=== PATIENT | male | born 1995 | race Two or more races ===

== ENCOUNTER 2017-12-14 13:49 | Emergency (ER) | payer BC ==
[2017-12-14 14:13] VITALS: BP 152/91; PULSE 74; RESP 16; TEMP 98.2; O2SAT 93
--- NOTE | 2017-12-14 15:10 | EDPHY ---
H & P Time Seen by Provider: 12/14/17 14:55 HPI/ROS: CHIEF COMPLAINT: Back pain HISTORY OF PRESENT ILLNESS: Patient is a 22-year-old male who presents to the emergency department right lower back pain. It is point tender. It is worse with movement. He does not recall sustaining injury. He has had a similar pain there in the past which resolved on its own. He denies any recent trauma or fall. No weakness or numbness. No incontinence of urine or stool. No fevers or chills. No dysuria or frequency. No hematuria. REVIEW OF SYSTEMS: My complete review of systems is negative except as mentioned in the HPI. Past Medical/Surgical History: Previous back pain Past surgical history: Negative Social history: The patient does not smoke Smoking Status: Never smoked Physical Exam: Vitals noted GENERAL: Well-appearing, in no acute distress, alert. HEENT: Eyes normal to inspection, normal pharynx, no signs of dehydration. NECK: [No thyromegaly, no lymphadenopathy, supple. RESPIRATORY: Clear to auscultation bilaterally, no rales, rhonchi or wheezing. CVS: Regular rate and rhythm, no rubs, murmurs, or gallops. ABDOMEN: Soft, nontender, nondistended, no organomegaly. BACK: Normal to inspection, no CVA tenderness. Patient has right low tenderness to palpation. This is point tender. There is no palpable mass. It is just lateral to the vertebral column. No spinal tenderness to palpation. No step-off. Negative leg raise. SKIN: Normal color, no rash, warm, dry. No pallor. EXTREMITIES: No pedal edema, no calf tenderness, no Homans sign or cords, no joint swelling. NEURO/PSYCH: Alert and oriented x3, normal mood and affect, normal motor sensory exam. No obvious cranial nerve deficit. Constitutional: Initial Vital Signs Temperature (C) 36.8 C 12/14/17 14:10 Heart Rate 74 12/14/17 14:10 Respiratory Rate 16 12/14/17 14:10 Blood Pressure 152/91 H 12/14/17 14:10 O2 Sat (%) 93 12/14/17 14:10 O2 Delivery Mode Room Air Allergies/Adverse Reactions: No Known Allergies Allergy (Verified 12/14/17 14:09) Home Medications: Medication Instructions Recorded NK [No Known Home Meds] 12/14/17 Medical Decision Making ED Course/Re-evaluation: In the emergency department I discussed possible etiologies with the patient. I answered all his questions. Patient will be given a prescription of ibuprofen and Flexeril. I gave him warnings prior to leaving. He will return with worsening symptoms. Differential Diagnosis: My differential includes but is not limited to musculoskeletal strain, disc herniation, hematoma, pyelonephritis, kidney stones Departure - Departure Disposition: Home, Routine, Self-Care Clinical Impression: Low back pain Qualifiers: Chronicity: acute Back pain laterality: right Sciatica presence: without sciatica Qualified Code(s): M54.5 - Low back pain Condition: Good Instructions: Acute Low Back Pain (ED), Lower Back Exercises (ED) Additional Instructions: Return with increasing pain, weakness, numbness incontinence or urine or stool, or any other concerns. Referrals: Errol Gunter MD [Medical Doctor] - 5-7 days, call for appt.
== END 2017-12-14 15:23 | disposition home or self-care (01) ==
DX: M54.5 Low back pain (principal)

== ENCOUNTER 2018-01-03 16:20 | Emergency (ER) | payer BC ==
--- NOTE | 2018-01-03 16:22 | EDPHY ---
HPI/HX/ROS/PE/MDM Narrative: CHIEF COMPLAINT: Snowboard accident. HPI: This 22 year old male arriving via EMS presents for evaluation after a snowboard accident this afternoon. Per EMS report, the patient was helmeted and fell, losing consciousness. He was able to get up following this but fell and lost consciousness again. [place], who reported he was initially combative on scene. These symptoms resolved while he waited at the first aid station. When EMS arrived, he was momentarily combative again, but became calm during transport. Vitals were stable in transport. Patient denies other trauma. No fever, vomiting, vision changes, or other associated symptoms. REVIEW OF SYSTEMS: Aside from elements discussed in the HPI, a comprehensive 10-point review of systems was reviewed and is negative. PMH: Denies. SOCIAL HISTORY: Friend at bedside. Speaks Nepali and Farsi. Student at [employer]. PHYSICAL EXAM: General:Patient is alert, in no acute distress. ENT:Eyes are normal to inspection. ENT inspection normal. Neck: Normal inspection. Full range of motion. Respiratory:No respiratory distress. Breath sounds normal bilaterally. Cardiovascular: Regular rate and rhythm. Strong peripheral pulses. Normal cap refill. Abdomen:The abdomen is nontender to palpation. There are no peritoneal signs. There are normal bowel sounds. Back: Normal to inspection. No tenderness to palpation. Skin: Normal color. No rash. Warm and dry. Extremities: Normal appearance. Full range of motion. Neuro: Oriented x3. Normal motor function. Normal sensory function. ED Course: 16:22 Met EMS at bedside. 16:32 Alerted by nurse that the patient has decided to leave before the visit was complete. When I met EMS at bedside, the patient was in no acute distress and I did not observe any obvious trauma. 16:40 The patient has changed his mind and wishes to remain for further evaluation. Plan for CT head and cervical spine. 16:51 Patient again wishes to leave. I spoke with him and he agrees to CT head. Exam unremarkable. Patient continues to be well-appearing. 17:[address] Gallegos, radiologist. CT shows evidence of small left frontal cortical contusion. C-spine unremarkable. 17:[address] Zhang, neurosurgeon. He is comfortable with outpatient followup for this patient given diagnosis of left fontal cortical contusion given the patient's exam findings, scan, and mechanism of injury. Plan to d/c home in good condition. Follow up and strict return precautions discussed. He is comfortable with this plan. - Data Points Imaging Results: Imaging Impressions Cervical Spine CT 01/03/18 16:26 Impression: Possible small left frontal cortical contusion without mass effect.. 2. CT Cervical Spine Without Contrast, 16:57PM History: Trauma. Snowboarding injury. Technique: Multislice helical CT through the cervical spine without contrast from the skull base to T1. Soft tissue and bone evaluation is performed. Sagittal and coronal reconstructions are obtained and reviewed. Dose reduction techniques were utilized. Findings: Cervical alignment is anatomic, but straight. No fracture or dislocation is identified. The relationship between skull base and C1 is normal. The C1-C2 articulation is normally aligned. The odontoid process is intact. Disk spaces maintain their normal height . Facet joints are normally aligned. The cervical thoracic junction is normally aligned. Soft tissue window evaluation does not show evidence of epidural or prevertebral hematoma. Impression: No posttraumatic abnormality identified. Results called and discussed with Cruz Mayer MD, at 01/03/2018 17:24 Final results are concordant with the initial interpretation. General information for patients regarding this examination can be found at [email or web address]. If you have questions or comments about this report, please contact me at [phone](hospital) or [phone] (cell). Head CT 01/03/18 16:26 Impression: Possible small left frontal cortical contusion without mass effect.. 2. CT Cervical Spine Without Contrast, 16:57PM History: Trauma. Snowboarding injury. Technique: Multislice helical CT through the cervical spine without contrast from the skull base to T1. Soft tissue and bone evaluation is performed. Sagittal and coronal reconstructions are obtained and reviewed. Dose reduction techniques were utilized. Findings: Cervical alignment is anatomic, but straight. No fracture or dislocation is identified. The relationship between skull base and C1 is normal. The C1-C2 articulation is normally aligned. The odontoid process is intact. Disk spaces maintain their normal height . Facet joints are normally aligned. The cervical thoracic junction is normally aligned. Soft tissue window evaluation does not show evidence of epidural or prevertebral hematoma. Impression: No posttraumatic abnormality identified. Results called and discussed with Cruz Mayer MD, at 01/03/2018 17:24 Final results are concordant with the initial interpretation. General information for patients regarding this examination can be found at [email or web address]. If you have questions or comments about this report, please contact me at (hospital) or [phone] (cell). Imaging: Discussed imaging studies w/ director call Radiologist General Time Seen by Provider: 01/03/18 16:20 Initial Vital Signs: Initial Vital Signs Temperature (C) 36.7 C 01/03/18 16:25 Heart Rate 65 01/03/18 16:25 Respiratory Rate 16 01/03/18 16:25 Blood Pressure 132/97 H 01/03/18 16:25 O2 Sat (%) 100 01/03/18 16:25 O2 Delivery Mode Room Air Allergies/Adverse Reactions: No Known Allergies Allergy (Verified 12/14/17 14:09) Home Medications: Medication Instructions Recorded Cyclobenzaprine [Flexeril] 10 mg PO TID #15 tab 12/14/17 Ibuprofen 600 mg PO Q6 #15 tablet 12/14/17 Departure - Departure Disposition: Home, Routine, Self-Care Clinical Impression: Cortical contusion Qualifiers: Encounter type: initial encounter Loss of consciousness presence/duration: with LOC of 30 min or less Qualified Code(s): S06.2X1A - Diffuse traumatic brain injury with loss of consciousness of 30 minutes or less, initial encounter Condition: Good Instructions: Head Injury (ED) Additional Instructions: 1. You do have a small left frontal cortical contusion found on CT. 2. Follow up with Dr. Zhang, neurosurgeon, this week. 3. Return to the Emergency Department for severe headache, vomiting, vision changes, confusion, fever or other concerns. Referrals: Thanh Zhang MD [Medical Doctor] - As per Instructions Report Scribed for: Cruz Mayer Report Scribed by: Ruth Jackson Date of Report: 01/03/18 Time of Report: 16:37 Physician Review and Approval Statement: Portions of this note were transcribed by an ED scribe. I personally performed the history, physical exam, and medical decision making; and confirm the accuracy of the information in the transcribed note.
[2018-01-03 16:28] VITALS: RESP 16
[2018-01-03 18:09] VITALS: BP 143/91; PULSE 67; TEMP 97.5; O2SAT 98
== END 2018-01-03 18:07 | disposition home or self-care (01) ==
LOC: EDUNIT#
DX: S06.2X1A Diffuse traumatic brain injury with loss of consciousness of 30 minutes or less, initial encounter (principal); V00.311A Fall from snowboard, initial encounter; Y99.8 Other external cause status; Y93.23 Activity, snow (alpine) (downhill) skiing, snowboarding, sledding, tobogganing and snow tubing

== ENCOUNTER 2018-01-11 16:00 | Emergency (ER) | payer BC ==
[2018-01-11 16:19] VITALS: BP 111/71; PULSE 96; RESP 18; O2SAT 96
--- NOTE | 2018-01-11 16:21 | EDPHY ---
H & P Stated Complaint: Flu sxs x 4 days Time Seen by Provider: 01/11/18 16:19 HPI/ROS: CHIEF COMPLAINT: [ ] HISTORY OF PRESENT ILLNESS: [Need 4: Location, Duration, Severity, Quality, Context, Timing Modifying Factors, Associated S&S] REVIEW OF SYSTEMS: A comprehensive 10 point review of systems is otherwise negative aside from elements mentioned in the history of present illness. - Personal History Current Tetanus Diphtheria and Acellular Pertussis (TDAP): Yes Tetanus Vaccine Date: 2015 - Medical/Surgical History Hx Asthma: No Hx Chronic Respiratory Disease: No Hx Diabetes: No Hx Cardiac Disease: No Hx Renal Disease: No Hx Cirrhosis: No Hx Alcoholism: No Hx HIV/AIDS: No Hx Splenectomy or Spleen Trauma: No Other PMH: none - Social History Smoking Status: Never smoked - Physical Exam Exam: General Appearance: [Alert, no distress] Eyes: [Pupils equal and round no pallor or injection] ENT, Mouth: [Mucous membranes moist] Respiratory: [There are no retractions, lungs are clear to auscultation] Cardiovascular: [Regular rate and rhythm] Gastrointestinal: [Abdomen is soft and nontender, no masses, bowel sounds normal] Neurological: [A&O, normal motor function, normal sensory exam, normal cranial nerves] Skin: [Warm and dry, no rashes] Musculoskeletal: [Neck is supple nontender] Extremities: [symmetrical, full range of motion] Psychiatric: [Patient is oriented X 3, there is no agitation] Constitutional: Initial Vital Signs Temperature (C) 37.4 C 01/11/18 16:15 Heart Rate 96 01/11/18 16:15 Respiratory Rate 18 01/11/18 16:15 Blood Pressure 111/71 01/11/18 16:15 O2 Sat (%) 96 01/11/18 16:15 O2 Delivery Mode Room Air Allergies/Adverse Reactions: No Known Allergies Allergy (Verified 01/11/18 16:17) Home Medications: Medication Instructions Recorded NK [No Known Home Meds] 01/11/18 Departure - Departure Referrals: NONE *PRIMARY CARE P,. [Primary Care Provider] - As per Instructions
[2018-01-11] MEDS ORDERED: IBUPROFEN 600 MG TAB PO ONE (16:26)
[2018-01-11] MEDS ORDERED: ACETAMINOPHEN 325 MG TAB PO ONE (16:26)
--- NOTE | 2018-01-11 16:27 | EDPHY ---
H & P Stated Complaint: Flu sxs x 4 days Time Seen by Provider: 01/11/18 16:19 HPI/ROS: CHIEF COMPLAINT: Myalgias, low-grade fever, sore throat, cough HISTORY OF PRESENT ILLNESS: The patient presents to the ED with a 4 day history of myalgias, low-grade fever, sore throat and cough. The patient denies history of lung disease. The patient did not get a flu shot this year. The patient denies any abdominal pain, vomiting or diarrhea. The patient denies any neck stiffness, severe headache or focal neurologic symptoms. The patient denies significant past medical history. REVIEW OF SYSTEMS: A comprehensive 10 point review of systems is otherwise negative aside from elements mentioned in the history of present illness. Source: Patient Exam Limitations: No limitations - Personal History Current Tetanus Diphtheria and Acellular Pertussis (TDAP): Yes Tetanus Vaccine Date: 2015 - Medical/Surgical History Hx Asthma: No Hx Chronic Respiratory Disease: No Hx Diabetes: No Hx Cardiac Disease: No Hx Renal Disease: No Hx Cirrhosis: No Hx Alcoholism: No Hx HIV/AIDS: No Hx Splenectomy or Spleen Trauma: No Other PMH: none - Social History Smoking Status: Never smoked - Physical Exam Exam: General Appearance: Alert, no distress Eyes: Pupils equal and round no pallor or injection ENT, Mouth: Mucous membranes moist, no pharyngeal erythema Respiratory: There are no retractions, lungs are clear to auscultation, no abnormal breath sounds Cardiovascular: Regular rate and rhythm Gastrointestinal: Abdomen is soft and nontender, no masses, bowel sounds normal Neurological: A&O, normal motor function, normal sensory exam, normal cranial nerves Skin: Warm and dry, no rashes Musculoskeletal: Neck is supple nontender, no meningeal symptoms Extremities: symmetrical, full range of motion Constitutional: Initial Vital Signs Temperature (C) 37.4 C 01/11/18 16:15 Heart Rate 96 01/11/18 16:15 Respiratory Rate 18 01/11/18 16:15 Blood Pressure 111/71 01/11/18 16:15 O2 Sat (%) 96 01/11/18 16:15 O2 Delivery Mode Room Air Allergies/Adverse Reactions: No Known Allergies Allergy (Verified 01/11/18 16:17) Home Medications: Medication Instructions Recorded NK [No Known Home Meds] 01/11/18 Medical Decision Making ED Course/Re-evaluation: The patient presents to the ED with a likely influenza infection. The patient has had symptoms from 4 days and would not be a candidate for Tamiflu at this point time. The patient has been given a prescription for albuterol. The patient has no clinical evidence of pneumonia or meningitis. He is advised to take Tylenol and ibuprofen as needed for pain. The patient should return to the ED for markedly worsening symptoms or other concerns. Differential Diagnosis: Differential diagnosis considered includes pneumonia, influenza, strep pharyngitis Departure - Departure Disposition: Home, Routine, Self-Care Clinical Impression: Influenza Condition: Good Instructions: Viral Syndrome (ED) Additional Instructions: 1. Please return to the emergency department for any worsening symptoms or difficulty breathing. 2. Please use albuterol inhaler up to every 2-4 hours as needed for cough and shortness of breath. 3. Take Ibuprofen or Motrin 600 mg by mouth three times a day.. Tylenol 650 mg every 6 hr for pain and fever. Referrals: [facility] Rivers,. [Clinic] - As per Instructions
[2018-01-11 17:00] VITALS: TEMP 98.8
== END 2018-01-11 17:00 | disposition home or self-care (01) ==
DX: J11.1 Influenza due to unidentified influenza virus with other respiratory manifestations (principal)